=== PATIENT | male | born 1965 | race Caucasian/White ===

== ENCOUNTER 2018-06-21 13:30 | Outpatient (CLI) | payer OTHER ==
--- NOTE | 2018-06-21 17:17 | Ultrasound Report ---
Reason: SUBCUTANEOUS MASS OF BACK,ABDOMINA PAIN,INGUINAL P Procedure Date: 06/21/2018 Accession Number: [id number] / [id number] Procedure: US - Chest CPT Code: FULL RESULT: EXAM: SOFT TISSUE CHEST ULTRASOUND EXAM DATE: 06/21/2018 02:27 PM. CLINICAL HISTORY: SUBCUTANEOUS MASS OF RIGHT SHOULDER PRESENT FOR MANY YEARS. COMPARISON: None. TECHNIQUE: Real-time scanning by the head boys golf coach was saved static images reviewed. FINDINGS: Corresponding to the palpable and visible abnormality are 2 adjacent masses measuring 2.3 x 0.9 x 2.2 cm and 2.7 x 1 x 1.4 cm. Both masses are identical mean slightly hypoechoic, avascular and solid. No cyst or other abnormality is seen. IMPRESSION: 2 hypoechoic avascular solid adjacent masses account for the palpable right shoulder abnormality. Given the history and appearance of the lesions they are likely lipomas. RADIA
--- NOTE | 2018-06-21 17:20 | Ultrasound Report ---
Reason: ABD PAIN Procedure Date: 06/21/2018 Accession Number: [id number] / [id number] Procedure: US - Abdomen Limited CPT Code: FULL RESULT: EXAM: ABDOMEN ULTRASOUND LIMITED, RUQ EXAM DATE: 06/21/2018 02:41 PM. CLINICAL HISTORY: ABD PAIN after lifting heavy objects. COMPARISON: None. TECHNIQUE: Real-time scanning was performed with static images obtained. FINDINGS: The anterior right mid to lower abdominal wall in the region of clinical pain is scanned. No hernia, cystic or solid mass, abnormal fluid collection or other abnormality is seen. IMPRESSION: No right-sided anterior abdominal wall hernia is seen to explain the patient's mid to lower abdominal pain. RADIA
--- NOTE | 2018-06-21 17:26 | Ultrasound Report ---
Reason: SUBCUTANEOUS MASS OF BACK,ABDOMINA PAIN,INGUINAL P Procedure Date: 06/21/2018 Accession Number: [id number] / [id number] Procedure: US - Pelvic Limited or F/U CPT Code: FULL RESULT: EXAM: INGUINAL ULTRASOUND EXAM DATE: 06/21/2018 03:00 PM. CLINICAL HISTORY: Right inguinal pain COMPARISON: None. TECHNIQUE: Real-time sonographic imaging of the inguinal canals and vascular structures, including color-flow, was performed by the [employer] with me present. Multiple distribution sales representative static images were saved for review. FINDINGS: Hernia: Medial to the right epigastric artery is a small at least partially reducible fat-containing hernia, the hiatus measuring 6 mm. Maximal hernia size is approximately 1.1 x 1.6 cm. IMPRESSION: Small 1.1 x 1.6 cm fat containing right inguinal hernia with a hiatus measuring 6 mm is present. The hernia is at least partially if not totally reducible. RADIA
== END 2018-06-21 13:31 | disposition home or self-care (01) ==
LOC: DI 13:30
PROVIDERS: ATTEND Family Medicine
DX: K40.90 Unilateral inguinal hernia, without obstruction or gangrene, not specified as recurrent (principal); R10.9 Unspecified abdominal pain; R22.2 Localized swelling, mass and lump, trunk
CPT/HCPCS: 76604; 76705; 76857

== ENCOUNTER 2018-06-30 08:47 | Outpatient (CLI) | payer OTHER ==
[2018-06-30 12:58] LABS: BASOPHILS % (AUTO) 0.4 %; EOSINOPHILS % (AUTO) 0.7 %; LYMPHOCYTES # (AUTO) 2.2 10^3/uL (1.5-3.5); LYMPHOCYTES % (AUTO) 40.8 %; MEAN CORPUSCULAR HEMOGLOBIN 30.3 pg (27.0-31.0); MEAN CORPUSCULAR HGB CONC 33.6 g/dL (32.0-36.0); MEAN CORPUSCULAR VOLUME 90.3 fL (80.0-94.0); MEAN PLATELET VOLUME 7.7 fL (7.4-11.4); MONOCYTES # (AUTO) 0.4 10^3/uL (0.0-1.0); MONOCYTES % (AUTO) 6.5 %; NEUTROPHILS # (AUTO) 2.8 10^3/uL (1.5-6.6); NEUTROPHILS % (AUTO) 51.6 %; PLT - PLATELET COUNT 315 10^3/uL (130-450); RED BLOOD COUNT 4.61 10^6/uL (4.70-6.10); RED CELL DISTRIBUTION WIDTH 13.8 % (12.0-15.0); WHITE BLOOD COUNT 5.5 x10^3/uL (4.8-10.8)
[2018-06-30 13:31] LABS: ALBUMIN/GLOBULIN RATIO 1.3 (1.0-2.2); ALKALINE PHOSPHATASE 39 IU/L (42-121); ALT ALANINE AMINOTRANSFERASE 22 IU/L (10-60); AST ASPARTATE AMINOTRANSFERASE 25 IU/L (10-42); BILIRUBIN,TOTAL 0.7 mg/dL (0.2-1.0); BUN - BLOOD UREA NITROGEN 15 mg/dL (6-20); CALCIUM 8.9 mg/dL (8.5-10.3); CARBON DIOXIDE - CO2 23 mmol/L (21-32); CHLORIDE 107 mmol/L (101-111); CHOL/HDL RATIO 4.5 (<5.0); CHOLESTEROL 183 mg/dL; GFR - MDRD 79 (>89); GLUCOSE 110 mg/dL (70-100); HDL CHOLESTEROL 41 mg/dL; LDL CHOLESTEROL,CALCULATED 121 mg/dL; SODIUM 138 mmol/L (135-145); VLDL CHOLESTEROL 21 mg/dL
[2018-06-30 13:46] LABS: HB2 TOTAL 15.1 g/dL; HEMOGLOBIN A1C 0.5 g/dL; HEMOGLOBIN A1C % 5.2 % (4.6-6.2)
== END 2018-06-30 08:48 | disposition home or self-care (01) ==
LOC: LAB.WCP 08:47
PROVIDERS: ATTEND Family Medicine
DX: Z00.00 Encounter for general adult medical examination without abnormal findings (principal); Z12.5 Encounter for screening for malignant neoplasm of prostate
CPT/HCPCS: 36415; 80053; 80061; 83036; 83721; 84153; 84443; 85025

== ENCOUNTER 2019-04-11 09:11 | Day surgery (SDC) | payer BC ==
[2019-04-11] MEDS ORDERED: LACTATED RINGERS 1,000 ML IV ONE (09:16)
[2019-04-11] MEDS ORDERED: fentaNYL 250 MCG/5 ML VIAL IVP ONE (10:57)
[2019-04-11] MEDS ORDERED: MIDAZOLAM 2 MG/2 ML VIAL IVP ONE (10:57)
[2019-04-11 12:04] VITALS: BP 103/65
== END 2019-04-11 09:12 | disposition home or self-care (01) ==
LOC: SDS 09:11
PROVIDERS: ATTEND Internal Medicine Gastroenterology
PROC: 0DBM8ZZ Excision of Descending Colon, Via Natural or Artificial Opening Endoscopic (ICD-10-PCS; 2019-04-11)
PROC: 0DBH8ZZ Excision of Cecum, Via Natural or Artificial Opening Endoscopic (ICD-10-PCS; principal; 2019-04-11 11:00)
DX: Z12.11 Encounter for screening for malignant neoplasm of colon (principal); D12.4 Benign neoplasm of descending colon; D12.0 Benign neoplasm of cecum
CPT/HCPCS: 45380; J3010; J7120

== ENCOUNTER 2021-08-25 08:03 | Emergency (ER) | payer BC ==
--- NOTE | 2021-08-25 09:34 | ED Physician Documentation ---
PD HPI UPPER EXT INJURY - Stated complaint Stated Complaint: LT FINGER INJ - Chief complaint Chief Complaint: Trauma Ext - History obtained from History obtained from: Patient - Additonal information Additional information: The patient comes to the emergency department for chief complaint of left index finger tip pain and swelling with subungual hematoma after a crush injury 2 days ago. The patient states that the skin split open after the injury seemingly from the swelling. He states he initially had quite a bit of pain under the nail but this is subsided quite a bit. He states his wanted him to come in so he is here. No other injuries or complaints. Up-to-date on tetanus. Review of Systems Ten Systems: 10 systems reviewed and negative Constitutional: reports: Reviewed and negative Eyes: reports: Reviewed and negative Ears: reports: Reviewed and negative Nose: reports: Reviewed and negative Throat: reports: Reviewed and negative Cardiac: reports: Reviewed and negative Respiratory: reports: Reviewed and negative GI: reports: Reviewed and negative : reports: Reviewed and negative Skin: reports: Laceration (s) Musculoskeletal: reports: Extremity pain, Extremity swelling Neurologic: reports: Reviewed and negative Psychiatric: reports: Reviewed and negative Endocrine: reports: Reviewed and negative Immunocompromised: reports: Reviewed and negative PD PAST MEDICAL HISTORY - Past Medical History Past Medical History: Yes Cardiovascular: None Respiratory: Asthma Endocrine/Autoimmune: None GI: Chronic diarrhea, Other : None HEENT: None Psych: None Musculoskeletal: None Derm: None - Present Medications Home Medications: Ambulatory Orders Medication Instructions Recorded Confirmed Levalbuterol [Xopenex] 2 puffs INH DAILY 04/08/19 04/11/19 Sulfamethox/Trimeth 800/160 1 each PO BID #14 tablet 08/25/21 [Bactrim Ds 800/160] - Allergies Allergies/Adverse Reactions: Allergies Allergy/AdvReac Type Severity Reaction Status Date / Time No Known Drug Allergies Allergy Verified 08/25/21 08:13 - Social History Does the pt smoke?: No Smoking Status: Never smoker PD ED PE NORMAL - Vitals Vital signs reviewed: Yes - General General: Alert and oriented X 3, No acute distress, Well developed/nourished - HEENT HEENT: Atraumatic, PERRL, EOMI, Moist mucous membranes - Neck Neck: Supple, no meningeal sign - Cardiac Cardiac: Strong equal pulses - Respiratory Respiratory: No respiratory distress - Derm Derm: Warm and dry, Other (Large left index finger subungual hematoma without trauma to the nail itself. Mild tenderness. 7 mm vertical laceration to fingertip pad. No deformity.) - Extremities Extremities: No deformity, Normal ROM s pain - Neuro Neuro: Alert and oriented X 3, podiatry doctor 2-12 intact, No motor deficit, No sensory deficit, Normal speech - Psych Psych: Normal mood, Normal affect Results - Vitals Vitals: Vital Signs - 24 hr 08/25/21 08:09 Temperature 36.0 C L Heart Rate 66 Respiratory 16 Rate Blood Pressure 147/98 H O2 Saturation 99 Oxygen O2 Source Room air - Rads (name of study) Left hand x-ray series Radiology: Final report received, EMP read indepedently (Left index finger tuft fracture minimal displacement.), See rad report Procedures - Splint (location) Left index finger Splint applied by: Tech Type of splint: Other (Finger splint) Other: Patient tolerated well, No complications, Neurovascular intact PD MEDICAL DECISION MAKING - ED course Complexity details: reviewed results, re-evaluated patient, considered differential, d/w patient ED course: X-ray series of the patient's left hand showed a small tuft fracture of the distal phalanx of left index finger. The patient was not in a lot of discomfort with his subungual hematoma but still had some discomfort and I offered him trephination which she did wish to have done. This was performed using an 18- gauge needle over sterilized nail surface and did yield 3 large drops of blood. Visually, the hematoma was improved and patient reported relief of the sense of pressure and discomfort. The patient's laceration was small and was already in the early stages of healing and was too old to repair at this point in time. I did feel the patient should be started on antibiotics though, given the tuft fracture directly underlying the superficial laceration. He has been given a prescription for this and we have discussed the importance of taking the antibiotics. Patient has been placed in a finger splint. We have discussed home management of the symptoms and the usual indications for return. Departure - Departure Disposition: 01 Home, Self Care Clinical Impression: Crushing injury of finger of left hand, Open fracture of tuft of distal phalanx of finger Subungual hematoma of finger of left hand Qualifiers: Encounter type: initial encounter Qualified Code(s): S60.10XA - Contusion of unspecified finger with damage to nail, initial encounter Condition: Stable Instructions: ED Fx Finger Open Prescriptions: Sulfamethox/Trimeth 800/160 [Bactrim Ds 800/160] 1 each PO BID #14 tablet Comments: Your x-rays today show a minor fracture of the tuft, or very tip of the last bone of the finger. This is very common with a crush injury. You do have some swelling associated with this as well as the split in the skin. Because of the open wound overlying the fracture, you have been started on antibiotics to be sure that infection does not develop in the Compromised bone itself. You do have a collection of blood, or hematoma, underneath your nail which has been partially drained today. If you wish to try to encourage more drainage, you may temporarily remove your finger from the splint and soak it in hot water. However, your body will reabsorb the blood on its own without further intervention. It is very possible that your nail will fall off, as a lot of it has already been from the nailbed by the blood. If this happens, the nail will grow back on its own, given some weeks to months. You should wear the splint on your finger for at least the next 3 weeks, after which you may remove the splint. However, you should still use your finger gently to avoid reinjury to the newly healed bone. If you wish, you may follow-up with your primary doctor around that time to have a repeat x-ray done to make sure that healing has occurred completely. As for the fingertip wound, it is already beginning to heal on its own and should do so in the next week or so. If you begin to notice the appearance of infection, please return to the emergency department.
[2021-08-25] MEDS: BACITRACIN ZINC OINT 1 PACKET TOP STA (09:35)
--- NOTE | 2021-08-25 09:48 | XRAY Report ---
PROCEDURE: Hand 3 View LT INDICATIONS: crush inj small finger TECHNIQUE: 3 views of the hand(s) acquired. COMPARISON: None FINDINGS: Bones: No fractures or dislocations. No suspicious bony lesions. Soft tissues: No suspicious soft tissue calcifications. IMPRESSION: Normal left hand Reviewed by: Hugh Hernandez on 08/25/2021 8:46 AM TATE Approved by: Hugh Hernandez on 08/25/2021 8:46 AM TATE Station ID: [id number]
[2021-08-25 10:02] VITALS: BP 122/82
== END 2021-08-25 10:00 | disposition home or self-care (01) ==
LOC: ED 08:03
DX: S62.631B Displaced fracture of distal phalanx of left index finger, initial encounter for open fracture (principal); W20.8XXA Other cause of strike by thrown, projected or falling object, initial encounter
CPT/HCPCS: 10140; 73130; 99283; A9270